=== PATIENT | female | born 1965 | race Caucasian/White ===

== ENCOUNTER 2016-09-14 22:30 | Emergency (ER) | payer OTHER ==
[2016-09-15 00:38] LABS: HEMOGLOBIN 9.3 gm/dl (12.3-15.3); RED BLOOD COUNT 3.41 M/UL (4.00-5.10); WHITE BLOOD COUNT 15.8 K/UL (4.5-11.0)
[2016-09-15 00:58] LABS: BUN/CREATININE RATIO 15 (0-10)
== END 2016-09-15 01:14 | disposition short-term general hospital (02) ==
LOC: ER1 22:30
PROVIDERS: Physician Assistant
DX: M79.671 Pain in right foot (principal); I82.4Z2 Acute embolism and thrombosis of unspecified deep veins of left distal lower extremity; D64.9 Anemia, unspecified; F17.210 Nicotine dependence, cigarettes, uncomplicated; Z89.612 Acquired absence of left leg above knee; Z88.0 Allergy status to penicillin
CPT/HCPCS: 36415; 80053; 85025; 85610; 85730; 93005; 96374; 99291; J1644; J7030